=== PATIENT | female | born 1950 | race African-American/Black ===

== ENCOUNTER 2022-03-18 08:05 | Emergency (ER) | payer BC, MEDICAID ==
[~2022-03-18] VITALS: Ht 165.1 cm; Wt 50.0 kg
[2022-03-18 09:15] LABS: BASOPHILS % 0.1 % (0.0-2.0); HEMATOCRIT. 44.3 % (36.0-48.0); HEMOGLOBIN. 14.2 g/dL (12.0-16.0); LYMPHOCYTES % 7.6 % (20.0-50.0); MEAN CORPUSCULAR HEMOGLOBIN 27.5 pg (28.0-32.0); MEAN CORPUSCULAR VOLUME 85.7 fL (81.0-99.0); MEAN PLATELET VOLUME 7.7 fl (7.4-10.4); MONOCYTES % 6.9 % (2.0-8.0); NEUTROPHILS % 85.4 % (40.0-76.0); PLATELET 220 x1000/uL (130-400); RED BLOOD CELL COUNT 5.17 mill/uL (4.2-5.4); RED CELL DISTRIBUTION WIDTH 14.2 % (11.6-14.6)
[2022-03-18 09:22] LABS: CHLORIDE 99 mEq/L (98-107)
[2022-03-18 09:30] LABS: ETHANOL BLOOD < 10 mg/dL
[2022-03-18] MEDS ORDERED: ASPIRIN 325MG EC TABLET PO ONE (11:00)
[2022-03-18 11:55] LABS: CLARITY URINE CLOUDY (CLEAR); COLOR URINE DARK YELLOW (YELLOW); KETONES URINE TRACE (NEGATIVE); LEUKOCYTE ESTERASE URINE TRACE (NEGATIVE); NITRITE URINE NEGATIVE (NEGATIVE); OCCULT BLOOD URINE 3+ (NEGATIVE); PROTEIN URINE 2+ (NEGATIVE); SPECIFIC GRAVITY URINE 1.024 (1.005-1.030)
[2022-03-18 12:08] LABS: *AMPHETAMINES SCREEN URINE NEGATIVE (NEGATIVE); *BARBITURATES SCREEN URINE NEGATIVE (NEGATIVE); *BENZODIAZEPINES SCREEN URINE NEGATIVE (NEGATIVE); *COCAINE SCREEN URINE NEGATIVE (NEGATIVE); CANNABINOID URINE SCREEN PRESUMTIVE POSITIVE (NEGATIVE); METHADONE URINE SCREEN NEGATIVE (NEGATIVE); OPIATES URINE SCREEN NEGATIVE (NEGATIVE); PHENCYCLIDINE URINE SCREEN NEGATIVE (NEGATIVE)
[2022-03-18 13:32] LABS: CREATINE KINASE 6512 IU/L (26-192)
[2022-03-18 14:26] VITALS: BP 119/62
== END 2022-03-18 15:06 | disposition short-term general hospital (02) ==
LOC: ER 08:05
DX: G93.40 Encephalopathy, unspecified (principal); M62.82 Rhabdomyolysis; N39.0 Urinary tract infection, site not specified; N28.9 Disorder of kidney and ureter, unspecified; I10 Essential (primary) hypertension; Z20.822 Contact with and (suspected) exposure to COVID-19; F12.90 Cannabis use, unspecified, uncomplicated
CPT/HCPCS: 36415; 70450; 71045; 80053; 80305; 80320; 81003; 82550; 82962; 85025; 87426; 93005; 99285; C9803; G0480

== ENCOUNTER 2022-06-18 12:53 | Inpatient (IN) | payer MEDICARE, MEDICAID ==
[~2022-06-18] VITALS: Ht 165.1 cm; Wt 53.5 kg
[2022-06-18 14:18] LABS: CLARITY URINE CLEAR (CLEAR); COLOR URINE YELLOW (YELLOW); KETONES URINE TRACE (NEGATIVE); LEUKOCYTE ESTERASE URINE NEGATIVE (NEGATIVE); NITRITE URINE NEGATIVE (NEGATIVE); OCCULT BLOOD URINE NEGATIVE (NEGATIVE); PROTEIN URINE TRACE (NEGATIVE)
[2022-06-18 14:32] LABS: CHLORIDE 109 mEq/L (98-107)
[2022-06-18 14:38] LABS: *AMPHETAMINES SCREEN URINE NEGATIVE (NEGATIVE); *BARBITURATES SCREEN URINE NEGATIVE (NEGATIVE); *BENZODIAZEPINES SCREEN URINE NEGATIVE (NEGATIVE); *COCAINE SCREEN URINE PRESUMTIVE POSITIVE (NEGATIVE); CANNABINOID URINE SCREEN PRESUMTIVE POSITIVE (NEGATIVE); METHADONE URINE SCREEN NEGATIVE (NEGATIVE); OPIATES URINE SCREEN NEGATIVE (NEGATIVE); PHENCYCLIDINE URINE SCREEN NEGATIVE (NEGATIVE)
[2022-06-18 14:39] LABS: EOSINOPHILS % 1.6 % (0.0-5.0); ETHANOL BLOOD < 10 mg/dL; HEMATOCRIT. 38.1 % (36.0-48.0); HEMOGLOBIN. 12.7 g/dL (12.0-16.0); LYMPHOCYTES % 50.5 % (20.0-50.0); MEAN CORPUSCULAR HEMOGLOBIN 28.8 pg (28.0-32.0); MEAN CORPUSCULAR VOLUME 86.4 fL (81.0-99.0); MEAN PLATELET VOLUME 6.9 fl (7.4-10.4); MONOCYTES % 8.1 % (2.0-8.0); NEUTROPHILS % 38.8 % (40.0-76.0); PLATELET 235 x1000/uL (130-400); RED BLOOD CELL COUNT 4.41 mill/uL (4.2-5.4); RED CELL DISTRIBUTION WIDTH 14.3 % (11.6-14.6)
[2022-06-18] MEDS ORDERED: HYDRALAZINE 20MG/ML VIAL IV PRN (19:00)
[2022-06-18] MEDS ORDERED: DIPHENHYDRAMINE 50MG/ML VIAL IV PRN (19:00)
[2022-06-18] MEDS ORDERED: ACETAMINOPHEN 325MG TABLET PO PRN ×2 (19:00)
[2022-06-18] MEDS ORDERED: ONDANSETRON HCL 4MG/2ML INJ IV PRN (19:00)
[2022-06-18] MEDS ORDERED: CLONIDINE 0.1MG TABLET PO PRN (19:00)
[2022-06-18] MEDS ORDERED: MVI, ADULT NO.1 10 ML, FOLIC ACID 1 MG, THIAMINE HCL 100 MG in SODIUM CHLORIDE 0.9% 1,0... IV NR ×4 (20:30)
[2022-06-18 21:00] VITALS: BP 169/90
[2022-06-18] MEDS ORDERED: ASPI-1406 MT (22:34)
[2022-06-18 23:05] VITALS: BP 169/90
[2022-06-19] VITALS: BP 166/85
[2022-06-19] MEDS ORDERED: ISOS1TAB PO (00:55)
[2022-06-19] MEDS ORDERED: POTA-202 MT (00:55)
[2022-06-19] MEDS ORDERED: ERGO1250 (00:55)
[2022-06-19] MEDS ORDERED: AZIL80TA MT (00:55)
[2022-06-19] MEDS ORDERED: ATOR40TA70 MT (00:55)
[2022-06-19] MEDS ORDERED: FURO20TA4 PO (00:55)
[2022-06-19] MEDS ORDERED: NEBI20TA2 MT (00:55)
[2022-06-19] MEDS ORDERED: OLME40TA18 PO (00:55)
[2022-06-19] MEDS ORDERED: NICO-789 TD (00:55)
[2022-06-19] MEDS ORDERED: ASPI-1497 PO (00:55)
[2022-06-19 04:00] VITALS: BP 176/94
[2022-06-19] MEDS: HYDRALAZINE 20MG/ML VIAL IV PRN ×2 (06:10→13:04)
[2022-06-19 08:00] VITALS: BP 142/75
[2022-06-19] MEDS: AMLODIPINE 5MG TABLET PO SCH (09:00)
[2022-06-19] MEDS ORDERED: LORAZEPAM 2MG/ML CPJ IV PRN ×2 (09:15→13:45)
[2022-06-19] MEDS ORDERED: LEVETIRACETAM 500MG/5ML CUP PO NR (09:15)
[2022-06-19 12:00] VITALS: BP 171/74
[2022-06-19] MEDS: LEVETIRACETAM 500MG PREMIX 100 ML IV SCH ×2 (13:11→20:35)
[2022-06-19] MEDS: RISPERIDONE 0.5MG TABLET PO SCH (13:17)
[2022-06-19 16:00] VITALS: BP 103/65
[2022-06-19 20:00] VITALS: BP 159/98
[2022-06-20] VITALS: BP 151/83
[2022-06-20] MEDS: DONEPEZIL HCL 5MG TABLET PO SCH ×2 (00:11→20:39)
[2022-06-20] MEDS: AMLODIPINE 5MG TABLET PO SCH ×3 (00:12→20:38)
[2022-06-20 04:00] VITALS: BP 141/79
[2022-06-20 08:00] VITALS: BP 135/85
[2022-06-20] MEDS: LEVETIRACETAM 500MG PREMIX 100 ML IV SCH (08:17)
[2022-06-20] MEDS: RISPERIDONE 0.5MG TABLET PO SCH (08:17)
[2022-06-20] MEDS ORDERED: LEVETIRACETAM 500 MG in SODIUM CHLORIDE 0.9% 100 ML IV SCH (09:00)
[2022-06-20 11:59] VITALS: BP 104/64
[2022-06-20 15:34] VITALS: BP 105/64
[2022-06-20 20:00] VITALS: BP 119/76
[2022-06-20] MEDS: LEVETIRACETAM 500MG TABLET PO SCH (20:39)
[2022-06-21] VITALS: BP 111/69
[2022-06-21 04:00] VITALS: BP 129/82
[2022-06-21 08:00] VITALS: BP 140/89
[2022-06-21] MEDS: RISPERIDONE 0.5MG TABLET PO SCH (08:32)
[2022-06-21] MEDS: AMLODIPINE 5MG TABLET PO SCH (08:32)
[2022-06-21] MEDS: LEVETIRACETAM 500MG TABLET PO SCH (08:33)
[2022-06-21 11:59] VITALS: BP 138/88
[2022-06-21] MEDS ORDERED: RISPERIDONE 0.5MG TABLET PO SCH (13:30)
[2022-06-21 15:03] VITALS: BP 138/88
== END 2022-06-21 18:00 | disposition home or self-care (01) | DRG 93 ==
LOC: ER 12:53 → 8WST 16:26 → EDBEDREQ 16:39 → EDBEDREQTM 16:39 → ENRESERV 19:30
PROVIDERS: ADMIT Internal Medicine; ATTEND Internal Medicine
PROC: 4A00X4Z Measurement of Central Nervous Electrical Activity, External Approach (ICD-10-PCS; principal; 2022-06-21)
DX: G92.8 Other toxic encephalopathy (principal); I11.0 Hypertensive heart disease with heart failure; Z20.822 Contact with and (suspected) exposure to COVID-19; F03.90 Unspecified dementia, unspecified severity, without behavioral disturbance, psychotic disturbance, mood disturbance, and anxiety; R56.9 Unspecified convulsions; I50.9 Heart failure, unspecified; I16.0 Hypertensive urgency; F19.10 Other psychoactive substance abuse, uncomplicated; R00.1 Bradycardia, unspecified; F12.90 Cannabis use, unspecified, uncomplicated; F14.10 Cocaine abuse, uncomplicated; Z79.899 Other long term (current) drug therapy
CPT/HCPCS: 36415; 70551; 80053; 80305; 80320; 81003; 82140; 82962; 84443; 85025; 87426; 93005; 93306; 95816; 97161; 97166; 99285; C1893; J0360; J1953; J2060; J3411; J3490; J7030; G0480